=== PATIENT | female | born 2000 | race Caucasian/White ===

== ENCOUNTER 2020-06-24 22:16 | Inpatient (IN) ==
[2020-06-24] MEDS ORDERED: ONDANSETRON HCL/PF 2 MG/ML VIAL IV PRN (22:38)
[2020-06-24] MEDS ORDERED: NALOXONE HCL 1 MG/1 ML SYRG IV PRN (22:38)
[2020-06-24] MEDS ORDERED: BUPIVACAINE HCL/0.9 % NACL/PF 250 ML EP PRN (22:38)
[2020-06-24] MEDS ORDERED: LIDOCAINE HCL 50 ML VIAL PERI PRN (22:40)
[2020-06-24] MEDS ORDERED: OXYTOCIN/0.9 % SODIUM CHLORIDE 30 UNITS/500 ML BAG IV ONE (22:40)
[2020-06-24] MEDS ORDERED: ONDANSETRON 4 MG TAB.RAPDIS PO PRN (22:40)
[2020-06-24] MEDS ORDERED: RINGER'S SOLUTION,LACTATED 1,000 ML IV ONE (22:40)
[2020-06-24] MEDS ORDERED: RINGER'S SOLUTION,LACTATED 1,000 ML IV PRN (22:40)
[2020-06-24] MEDS ORDERED: fentaNYL CITRATE/PF 50 MCG/ML AMPUL IT ONE (22:45)
[2020-06-24] MEDS ORDERED: fentaNYL CITRATE/PF 50 MCG/ML AMPUL ONE (23:52)
--- NOTE | 2020-06-25 00:13 | ANES ---
Anesthesia Pre Procedure Eval Vitals/Labs: Last Vital Signs Temp 36.3 C 06/24/20 23:03 Pulse 107 H 06/24/20 23:03 Resp 20 06/24/20 23:03 BP 123/80 06/24/20 23:03 Pulse Ox 99 06/24/20 23:03 HOME MEDICATIONS ferrous sulfate 325 mg (65 mg iron) tablet,delayed release 325 mg PO DAILY #30 tab 04/09/20 [Last Taken Unknown] Vits96/Iron Fum/Folic [ S] 1 tab PO DAILY 06/03/20 [Last Taken Unknown] Allergies/Adverse Reactions: Allergies Allergy/AdvReac Type Severity Reaction Status Date / Time No Known Allergies Allergy Verified 06/24/20 22:23 - Planned Procedure Planned Procedure: Labor Medication List Reviewed:: Yes Allergies Verified: Yes Medical History (Last Reviewed 06/25/20 @ 00:13 by Jean Galvin CRNA) Dysmenorrhea Onset Date: Unknown Menorrhagia Onset Date: Unknown Surgical History (Last Reviewed 06/25/20 @ 00:13 by Jean Galvin CRNA) Hx of tonsillectomy Onset Date: Unknown [place] teeth removed Onset Date: Unknown Family History (Last Reviewed 05/20/20 @ 13:03 by Yohana Groves CMA) Mother Menometrorrhagia Had hysterectomy at age 27 Father Hypertension Hx of partial lobectomy Grandfather Heart disease Paternal Grandmother Ovarian cancer Maternal Grandmother Cancer Paternal - Family Anesthesia History Family History:: no untoward family reactions to anesthesia - Airway/Neck/Teeth Within Normal Limits:: Yes Teeth Condition: intact Neck Exam: full range of motion Mallampatti Score: 2 Thyromental (T-M) distance: > 6 cm Mandibulo Hyoid distance: > 3 cm - Respiratory Respiratory Physical: lungs clear Smoking Status: Former smoker Sleep Apnea currently treated: No Sleep Apnea by current assessment: No - Cardiovascular Tolerate Activity: Good Heart Sounds: S1 & S2, Regular - Gastrointestinal NPO since: 2199 - Anesthesia Assessment and Plan ASA Class: PS, II, E Anesthesia Type Plan: Epidural Planned difficult intubation/equipment available: No
--- NOTE | 2020-06-25 00:14 | ANES ---
Post Anesthesia Assessment - Vital Signs Vitals: Last Vital Signs Temp 36.3 C 06/24/20 23:03 Pulse 107 H 06/24/20 23:03 Resp 20 06/24/20 23:03 BP 123/80 06/24/20 23:03 Pulse Ox 99 06/24/20 23:03 Airway Patency: Normal - Mental Status Level Of Consciousness: Awake - Pain Level Pain Score: 2 - N/V Assessment Nausea/Vomiting Presence: None Dehydration:: No
--- NOTE | 2020-06-25 00:14 | ANES ---
Post Anesthesia Discharge - Transfer of Care Transfer of Care handoff given to nurse: Yes - Anesthesia Post Op Note Anesthesia Post Op Note: Care transferred to OB RN
--- NOTE | 2020-06-25 00:16 | ANES ---
Anesthesia Procedure Note Procedure Note: ANESTHESIA PROCEDURE NOTE Date of Procedure: 06/25/2020 Time of procedure: 0010. Performed by: Joe Galvin CRNA [place] Printer: None. Preprocedure diagnosis: Active labor. Post procedure diagnosis: Same. Procedure: Insertion of labor epidural. Indications: The patient is a 19-year-old prima para female in active labor requesting labor epidural for pain management. Findings: See below. Details of the procedure: The patient was placed in a sitting position. Back was prepped with DuraPrep. Patient was then draped in a sterile fashion. Lidocaine 1% was infiltrated to the skin and subcutaneous tissues at the level of the L3 4 interspace. The epidural space was identified using a 18-gauge Tuohy needle with [id number] technique. 20 mcg fentanyl was given intrathecally using a 27 ga. spinal needle. Epidural catheter was inserted without difficulty. Negative test dose was elicited using 5 mL of 1.5% preservative-free lidocaine plus epinephrine 1 200,000. The epidural catheter was then taped and secured in place. EBL: Minimal. Fluids: N/A. Specimen: N/A. Post procedure condition: The patient tolerated the procedure well. No complications were noted. Thank you for this consultation. Tena CRNA
--- NOTE | 2020-06-25 01:55 | HP ---
Chief Complaint - Chief Complaint Date of Service: 06/25/20 Time of Service: 01:45 Chief Complaint: contractions History of Present Illness: 19 yo at 39 3/7 weeks presents to L&D complaining of contractions of increased intensity and frequency since around 1630 last pm. Pt denies LOF, vaginal bleeding, decreased movement, n/v/f/c. This complicated by anemia and 1st trimester chlamydia infection. Rh negative Rubella immune GBS negative Medical History (Last Reviewed 06/25/20 @ 01:50 by Panchito Alba DO) Dysmenorrhea Onset Date: Unknown Menorrhagia Onset Date: Unknown Surgical History: Surgical History (Last Reviewed 06/25/20 @ 01:50 by Panchito Alba DO) Hx of tonsillectomy Onset Date: Unknown [place] teeth removed Onset Date: Unknown Family History: Family History (Last Reviewed 06/25/20 @ 01:50 by Panchito Alba DO) Mother Menometrorrhagia Had hysterectomy at age 27 Father Hypertension Hx of partial lobectomy Grandfather Heart disease Paternal Grandmother Ovarian cancer Maternal Grandmother Cancer Paternal Social History: (Last Reviewed 06/25/20 @ 01:50 by Panchito Alba DO) Social History: Marital status: Single current occupational status: employed current occupation: [employer] Service: No Tobacco: Smoking Status: Former smoker Alcohol: alcohol intake: former Substance Use: substance use type: does not use Dietary Habits: caffeine: Yes caffeine comment: Current some day Personal Safety: victim of physical abuse: No victim of emotional abuse: No Review Of Systems (GEN) - Review of Systems Generalized/Overall Review: Present: No Symptoms Reported EENTM: Present: No Symptoms Reported Respiratory: Present: No Symptoms Reported Cardiac: Present: No Symptoms Reported Abdominal: Present: Other - contractions Genitourinary: Present: No Symptoms Reported Musculoskeletal: Present: No Symptoms Reported Neurological: Present: No Symptoms Reported Skin: Present: No Symptoms Reported Endocrine: Present: No Symptoms Reported Allergies/Adverse Reactions: Allergies Allergy/AdvReac Type Severity Reaction Status Date / Time No Known Allergies Allergy Verified 06/24/20 22:23 Home Medications: HOME MEDICATIONS ferrous sulfate 325 mg (65 mg iron) tablet,delayed release 325 mg PO DAILY #30 tab 04/09/20 [Last Taken Unknown] Vits96/Iron Fum/Folic [ S] 1 tab PO DAILY 06/03/20 [Last Taken Unknown] Exam - Exam Vital Signs: Vital Signs - Last Taken Temp 36.3 C 06/24/20 23:03 Pulse 107 H 06/24/20 23:03 Resp 20 06/24/20 23:03 BP 123/80 06/24/20 23:03 Pulse Ox 99 06/24/20 23:03 Constitutional: Present: Alert, Oriented x3, Cooperative, Moderate distress - from pain of contractions prior to epidural ENT Exam: Present: hearing grossly normal Neck: Present: trachea midline. Absent: thyromegaly Breasts: Present: Exam deferred Respiratory: Present: lungs clear, no respiratory distress Cardiovascular/Chest: Present: normal peripheral pulses, regular rate, rhythm Abdomen: Present: soft, nontender, no rebound tenderness, other - gravid /Rectal: Present: Other - Cervix 3/80/-1 Extremity: Present: no pedal edema, no calf tenderness Skin Exam: Present: normal color, warm/dry, no cyanosis Neurologic: Present: alert, normal mood/affect, oriented x 3 Appearance: Present: appropriate appearance, appropriate insight Eye contact: Present: cooperative, good eye contact Thoughts: Present: normal thought pattern, normal mood /affect Assessment/Plan - Assessment/Plan (1) Labor established Assessment: Admit for routine management of labor. Epidural and pitocin PRN. Problem: Acute (2) Anemia Problem: Acute Qualifiers: Anemia type: iron deficiency Iron deficiency anemia type: inadequate dietary iron intake Qualified Code(s): D50.8 - Other iron deficiency anemias
--- NOTE | 2020-06-25 02:01 | PN ---
Progess Note - Interim Date: 06/25/20 Time: 01:58 Narrative: 06/25/20 01:58 Patient comfortable with epidural Vital signs stable. FHT: 140 baseline, reassuring contractions q 1-2 min Cervix: 8-9/90/-1, AROM-clear Impression: Intrauterine at 39 3/7 weeks in labor Plan: Anticipate normal spontaneous vaginal delivery soon.
--- NOTE | 2020-06-25 06:23 | OR ---
Operative Report - Dictated Report Narrative: Spontaneous vaginal delivery of vigorously crying viable female at 545 on 06/25/2020 with Apgars 8 and 9, weighing 3172 g in JANA position with body cord x1. Cord clamping delayed approximately 1 minute Placenta delivered complete, intact, with three vessel cord Estimated blood loss: 100 mL Anesthesia: Epidural and local 1% lidocaine plain Lacerations: Left labial laceration extending to clitoral terrell repaired with 4-0 Vicryl Rapide.
--- NOTE | 2020-06-25 06:24 | PN ---
Progess Note - Interim Date: 06/25/20 Time: 06:23 History for MU History for MU Definition: * The number of deliveries resulting in a live the patient experienced prior to current hospitalization * The previous delivery of live twins or any live multiple gestation is considered one live event. *If primagravida or nulliparous is documented select zero for the number of previous live births. Live Events: Live Events: 0
[2020-06-25] MEDS ORDERED: BISACODYL 10 MG SUPP.RECT RC PRN (06:28)
[2020-06-25] MEDS ORDERED: SENNOSIDES 8.6 MG TABLET PO PRN (06:28)
[2020-06-25] MEDS ORDERED: OXYTOCIN/0.9 % SODIUM CHLORIDE 30 UNITS/500 ML BAG IV ONE (06:28)
[2020-06-25] MEDS ORDERED: HYDROCORTISONE 30 APPL TUBE TP PRN (06:28)
[2020-06-25] MEDS ORDERED: BENZOCAINE/MENTHOL 81 SPRAY CAN TP PRN (06:28)
[2020-06-25] MEDS ORDERED: GLYCERIN/WITCH HAZEL LEAF 40 APPL BOX TP PRN (06:28)
[2020-06-25] MEDS: oxyCODONE HCL/ACETAMINOPHEN 1 TAB TABLET PO PRN ×3 (06:59→18:43)
[2020-06-25] MEDS: IBUPROFEN 800 MG TABLET PO PRN ×2 (06:59→14:47)
[2020-06-25] MEDS: FERROUS SULFATE 325 MG TABLET PO SCH (10:04)
[2020-06-25] MEDS: PRENATAL VITS96/IRON FUM/FOLIC 1 TAB TABLET PO SCH (10:04)
[2020-06-25] MEDS: DOCUSATE SODIUM 100 MG CAPSULE PO SCH ×2 (10:04→20:40)
[2020-06-26] MEDS: oxyCODONE HCL/ACETAMINOPHEN 1 TAB TABLET PO PRN ×3 (05:48→23:31)
[2020-06-26] MEDS: IBUPROFEN 800 MG TABLET PO PRN ×3 (05:48→23:32)
[2020-06-26] MEDS: PRENATAL VITS96/IRON FUM/FOLIC 1 TAB TABLET PO SCH (12:56)
[2020-06-26] MEDS: FERROUS SULFATE 325 MG TABLET PO SCH (12:56)
[2020-06-26] MEDS: DOCUSATE SODIUM 100 MG CAPSULE PO SCH ×2 (12:57→21:29)
--- NOTE | 2020-06-26 19:27 | PN ---
Subjective - Date and Time Seen Date: 06/26/20 Time: 19:27 Objective - Vitals Vitals: Last Vital Signs Temp 36.8 C 06/26/20 13:00 Pulse 83 06/26/20 13:00 Resp 16 06/26/20 13:00 BP 118/57 06/26/20 13:00 Pulse Ox 96 06/26/20 13:00 Patient denies complaints. Breast-feeding. Lochia wnl abdomen - soft, nontender Uterus -firm, at umbilicus - 1 No calf tenderness Impression: day #1 - s/p spontaneous vaginal delivery. Plan: Continue routine care Cauti Physician Documentation - Urinary Catheter Management Urethral (Nagy) Date of Insertion: 06/25/20 Time of Insertion: 00:25 Date of Removal: 06/25/20 Time of Removal: 03:00 Assessment/Plan - Problems/Diagnosis (1) Labor established Problem: Acute (2) Anemia Problem: Acute Qualifiers: Anemia type: iron deficiency Iron deficiency anemia type: inadequate dietary iron intake Qualified Code(s): D50.8 - Other iron deficiency anemias
[2020-06-27 08:05] VITALS: BP 110/59
--- NOTE | 2020-06-27 09:19 | PN ---
Subjective - Date and Time Seen Date: 06/27/20 Time: 09:18 Objective - Vitals Vitals: Last Vital Signs Temp 36.4 C 06/27/20 08:00 Pulse 91 06/27/20 08:00 Resp 20 06/27/20 08:00 BP 110/59 06/27/20 08:00 Pulse Ox 99 06/27/20 08:00 Patient denies complaints. Breast-feeding well. Lochia wnl abdomen - soft, nontender Uterus -firm, at umbilicus - 2 No calf tenderness Impression: day #2 - s/p spontaneous vaginal delivery. Plan: Routine discharge instructions Cauti Physician Documentation - Urinary Catheter Management Urethral (Nagy) Date of Insertion: 06/25/20 Time of Insertion: 00:25 Date of Removal: 06/25/20 Time of Removal: 03:00 Assessment/Plan - Problems/Diagnosis (1) Labor established Problem: Acute (2) Anemia Problem: Acute Qualifiers: Anemia type: iron deficiency Iron deficiency anemia type: inadequate dietary iron intake Qualified Code(s): D50.8 - Other iron deficiency anemias
[2020-06-27] MEDS: FERROUS SULFATE 325 MG TABLET PO SCH (10:50)
[2020-06-27] MEDS: PRENATAL VITS96/IRON FUM/FOLIC 1 TAB TABLET PO SCH (10:50)
[2020-06-27] MEDS: DOCUSATE SODIUM 100 MG CAPSULE PO SCH (10:50)
== END 2020-06-27 10:00 | disposition home or self-care (01) | DRG 807 ==
LOC: OBCLINIC 22:16 → OB 23:11
PROVIDERS: ADMIT Obstetrics & Gynecology; ATTEND Obstetrics & Gynecology